=== PATIENT | male | born 1995 | race Two or more races ===

== ENCOUNTER 2020-04-29 05:38 | Inpatient (IN) | payer OTHER ==
--- NOTE | 2020-04-28 11:30 | Pre-op HX & Phy Repo 2 SIG ---
DATE OF ADMISSION: 04/29/2020 SCHEDULED FOR SURGERY: April 29, 2020. HISTORY OF PRESENT ILLNESS: The patient is a 25-year-old patient with gender dysphoria, preoperative sexual reassignment surgery from male to female. PAST MEDICAL HISTORY: MEDICATIONS: Buspirone for anxiety, hormone therapy recently discontinued preoperatively. ALLERGIES: None. OPERATIONS: Breast, nose, cosmetic surgery, and wisdom tooth extraction. REVIEW OF SYSTEMS: She has no genitourinary or gastrointestinal symptoms. PHYSICAL EXAMINATION: GENERAL: The patient is thin. ABDOMEN: Soft. Femoral pulses are 3+. The perianal tissues are normal with no prolapse on straining. IMPRESSION: 1. Gender dysphoria. 2. Preoperative sexual reassignment surgery male to female. DISCUSSION: I have had a full discussion with the patient and her mother regarding the nature of my role in the surgery primarily performed by Dr. Lavelle Vega in that I create space for the vagina between the urinary tract superiorly and the rectum posteriorly. I discussed the use of the rigid sigmoidoscopy during the procedure and I have discussed the risks including bleeding, infection, injury to urinary tract or rectum, which could require additional procedures, delayed rectovaginal fistula that could require additional procedures, etc. All questions have been answered, she understood and agreed to proceed. Sebastian Zuniga M.D. DR: David JOB#: [id number] CC: ROHINI
[2020-04-29] VITALS (14 sets, daily range): BP systolic 112–149; BP diastolic 66–84
[~2020-04-29] VITALS: Ht 175.3 cm; Wt 55.0 kg
[~2020-04-29 05:38] MED LIST: BUSPIRONE HCL7.5 MG ORAL
[2020-04-29] MEDS ORDERED: Midazolam 2mg/2ml Inj ONE (07:05)
[2020-04-29] MEDS ORDERED: fentaNYL 100 mcg/2 mL IV ONE ×2 (07:05→14:17)
[2020-04-29] MEDS ORDERED: Lidocaine 1% MPF 10mg/ml 5ml ONE (07:08)
[2020-04-29] MEDS ORDERED: Bacitracin Oint 15gm Tube TOPIC ONE (07:09)
[2020-04-29] MEDS ORDERED: Bacitracin 50000 Units Vial ONE (07:10)
[2020-04-29] MEDS ORDERED: Lidocaine 1% 10mg/ml/Epi 0.005mg/ml 30ml vial INJ ONE (07:10)
[2020-04-29] MEDS ORDERED: Gelfoam Size TOPIC ONE (07:10)
[2020-04-29] MEDS ORDERED: NeoSporin Gu Irrig 1ml Amp IRRIG ONE (07:10)
[2020-04-29] MEDS ORDERED: TransDerm Scop 1.5mg/72HR Patch TDERMAL ONE ×2 (07:16→09:00)
[2020-04-29] MEDS ORDERED: Succinylcholine 20mg/ml 10ml vial ONE (07:17)
[2020-04-29] MEDS ORDERED: Rocuronium Bromide 50mg/5ml Inj IV ONE ×2 (07:17→12:50)
[2020-04-29] MEDS ORDERED: LR 1000ml ONE (07:30)
[2020-04-29] MEDS ORDERED: Sterile Water Irrig 1000ml IRRIG ONE (07:30)
[2020-04-29] MEDS ORDERED: NS Irrig 1000ml ONE (07:30)
[2020-04-29] MEDS ORDERED: Neostigmine 1mg/ml 10ml Inj ONE (07:30)
--- NOTE | 2020-04-29 07:46 | Pre-Procedure Note/Attestation ---
Pre-Procedure Note/Attestation Complete Prior to Procedure Planned Procedure: not applicable Procedure Narrative: Male to female gender confirmation Indications for Procedure Pre-Operative Diagnosis: gender dysphoria Attestation I attest that I discussed the nature of the procedure; its benefits; risks and complications; and alternatives (and the risks and benefits of such alternatives ), prior to the procedure, with the patient (or the patient's legal treasury representative). I attest that, if there was a reasonable possibility of needing a blood transfusion, the patient (or the patient's legal treasury representative) was given the [facility] standardized written summary, pursuant to the Osiel Datil Blood Safety Act ([place] Health and Safety Code # 1645, as amended). I attest that I re-evaluated the patient just prior to the surgery and that there has been no change in the patient's H&P, except as documented below: Lavelle Vega MD Apr 29, 2020 07:46
[2020-04-29] MEDS ORDERED: NS Irrig 1000ml IRRIG ONE ×2 (07:50→09:00)
[2020-04-29 08:27] LABS: BASOPHILS % (AUTO) 2.6 % (0.0-2.0); EOSINOPHILS % (AUTO) 0.9 % (0.0-3.0); HEMATOCRIT 26.8 % (37.0-47.0); HEMOGLOBIN 8.7 G/DL (12.0-16.0); LYMPHOCYTES % (AUTO) 12.9 % (20.0-45.0); MEAN CORPUSCULAR VOLUME 87 FL (80-99); MONOCYTES % (AUTO) 6.9 % (1.0-10.0); NEUTROPHILS % (AUTO) 76.7 % (45.0-75.0); PLATELET COUNT 369 K/UL (150-450); RED BLOOD COUNT 3.08 M/UL (4.20-5.40); RED CELL DISTRIBUTION WIDTH 12.3 % (11.6-14.8); WHITE BLOOD COUNT 5.1 K/UL (4.8-10.8)
[2020-04-29] MEDS ORDERED: Sodium Chloride 10ml vial INJ ONE (08:31)
[2020-04-29] MEDS ORDERED: ePHEDrine 50mg/ml Inj ONE (08:31)
--- NOTE | 2020-04-29 08:55 | Anethesia Preoperative Eval ---
Anesthesia Pre-op PMH/ROS General Date of Evaluation: Apr 29, 2020 Time of Evaluation: 07:15 Anesthesiologist: Marcos ASA Score: ASA 2 Mallampati Score Class I : Soft palate, uvula, fauces, pillars visible Class II: Soft palate, uvula, fauces visible Class III: Soft palate, base of uvula visible Class IV: Only hard plate visible Mallampati Classification: Class II Surgeon: Silvia Diagnosis: Gener dysphoria Surgical Procedure: Male to female sexual reassingment Anesthesia History: none, PONV - postop. Family History: no anesthesia problems Allergies: Coded Allergies: CHLORHEXIDINE (Verified Allergy, Severe, hives, 04/29/20) Medications: see eMAR Patient NPO?: Yes Past Medical History Cardiovascular: Denies: HTN, CAD, DE, valve dz, arrhythmia, other Pulmonary: Denies: asthma, COPD, SHAWN, other Gastrointestinal/Genitourinary: Denies: GERD, CRI, ESRD, other Neurologic/Psychiatric: Reports: depression/anxiety; Denies: dementia, CVA, TIA, other Endocrine: Denies: DM, hypothyroidism, steroids, other HEENT: Denies: cataract (L), cataract (R), glaucoma, COEUR D'ALENE (L), COEUR D'ALENE (R), other Hematology/Immune: Reports: anemia - starting H&H 8.7/.2, surgeon aware, 2 units of autlogus blod avaliable to transfuse postop; Denies: DVT, bleeding disorder, other Musculoskeletal/Integumentary: Denies: OA, RA, DJD, DDD, edema, other PMH Narrative: as above PSxH Narrative: breasts augmentation, rhinoplasty Anesthesia Pre-op Phys. Exam Physician Exam Last Vital Signs Date Time Temp Pulse Resp B/P (MAP) Pulse Ox O2 Delivery O2 Flow Rate FiO2 04/29/20 06:06 Room Air 04/29/20 06:06 98.3 85 18 133/80 (97) 100 Constitutional: NAD Neurologic: CN 2-12 intact Cardiovascular: RRR, no M/R/G Respiratory: CTA Gastrointestinal: S/NT/ND Airway Exam Mallampati Score: Class II MO: full Neck: fexible ROM: full Teeth: intact Dentures: no upper, no lower Anesthesia Pre-op A/P Labs Hematology Test 04/29/20 08:00 White Blood Count 5.1 K/UL (4.8-10.8) Red Blood Count 3.08 M/UL (4.20-5.40) L Hemoglobin 8.7 G/DL (12.0-16.0) L Hematocrit 26.8 % (37.0-47.0) L Mean Corpuscular Volume 87 FL (80-99) Mean Corpuscular Hemoglobin 28.3 PG (27.0-31.0) Mean Corpuscular Hemoglobin Concent 32.5 G/DL (32.0-36.0) Red Cell Distribution Width 12.3 % (11.6-14.8) Platelet Count 369 K/UL (150-450) Mean Platelet Volume 6.1 FL (6.5-10.1) L Neutrophils (%) (Auto) 76.7 % (45.0-75.0) H Lymphocytes (%) (Auto) 12.9 % (20.0-45.0) L Monocytes (%) (Auto) 6.9 % (1.0-10.0) Eosinophils (%) (Auto) 0.9 % (0.0-3.0) Basophils (%) (Auto) 2.6 % (0.0-2.0) H Risk Assessment & Plan Assessment: ASA 2 Plan: GA with ETT, PONV prevention Status Change Before Surgery: No Pre-Antibiotics Drug: Ancef 1gr Given Within 1 Hr of Incision: Yes Time Given: 08:10 Po Rodríguez MD Apr 29, 2020 08:55
[2020-04-29] MEDS ORDERED: Morphine Sulfate 10mg/ml Inj ONE (08:57)
[2020-04-29] MEDS ORDERED: Acetaminophen (Non formulary) 100 ML IV ONE (09:00)
--- NOTE | 2020-04-29 11:00 | Operative Note - Dictated ---
DATE OF OPERATION: 04/29/2020 SURGEON: Sebastian Zuniga MD ANESTHESIOLOGIST: Po Rodríguez MD. PREOPERATIVE DIAGNOSIS: Gender dysphoria. POSTOPERATIVE DIAGNOSIS: Gender dysphoria. OPERATION PERFORMED: Gender reassignment surgery male to female creation of vaginal canal PROCEDURE IN DETAIL: I entered to the operating room at the appropriate time after initial steps were carried out by the primary surgeon, Dr. Lavelle Vega. I incised the central perineal tendon and dissected a space between the urethra and bladder superiorly and the rectum posteriorly. I used a rigid sigmoidoscope in the rectum to facilitate the dissection. The levators were divided on both sides to allow 2.5 to 3 fingerbreadths in width space. Hemostasis was carefully achieved with cautery. Blunt dissection continued until we reached 11 cm in depth. Then, I placed the patient in Trendelenburg with saline in the field and insufflated the rectum. There was no sign of extravasation and inspecting the rectum with the proctoscope there was no sign of rectal trauma. The rectum was suctioned free of insufflated air and the sigmoidoscope removed. Betadine soaked vaginal pack was placed into the depths of the dissection and the procedure continued by Dr. Vega. Sebastian Zuniga M.D. DR: David JOB#: [id number] CC: ROHINI
[2020-04-29] MEDS ORDERED: LR 1000ml 1,000 ML IVLG SCH (11:12)
[2020-04-29] MEDS ORDERED: Hydromorphone 0.5mg/0.5ml inj IVP PRN (11:15)
[2020-04-29] MEDS ORDERED: Metoclopramide 10mg/2ml Inj IVP PRN (11:15)
[2020-04-29] MEDS ORDERED: Meperidine 25mg/0.5ml Inj (FOR RIGORS ONLY) IV PRN (11:15)
[2020-04-29] MEDS ORDERED: DiphenhydrAMINE 50mg/ml Inj IVP PRN (11:15)
[2020-04-29] MEDS ORDERED: Midazolam 2mg/2ml Inj IVP PRN (11:15)
[2020-04-29] MEDS ORDERED: Ketorolac 30mg Inj IV PRN (11:15)
[2020-04-29] MEDS ORDERED: Glycopyrrolate 0.2mg/ml 1ml Vial ONE (11:28)
[2020-04-29] MEDS ORDERED: DiphenhydrAMINE 50mg/ml Inj IVP SCH (12:15)
[2020-04-29] MEDS ORDERED: D5 1/2NS w/KCl 20mEq 1,000 ML IV SCH (15:05)
--- NOTE | 2020-04-29 15:27 | Immediate Post-Op Evaluation ---
Immediate Post-Op Evalulation Immediate Post-Op Evalulation Procedure: Male to female gender reassingment Date of Evaluation: Apr 29, 2020 Time of Evaluation: 15:25 IV Fluids: 1800 Blood Products: Albumin 250, 1 unit PRBC autologous Estimated Blood Loss: 250 Urinary Output: 300 Blood Pressure Systolic: 126 Blood Pressure Diastolic: 78 Pulse Rate: 92 Respiratory Rate: 22 O2 Sat by Pulse Oximetry: 99 Temperature (Fahrenheit): 97.8 Pain Score (1-10): 1 Nausea: No Vomiting: No Complications none Patient Status: reacts, patent, extubated, none Hydration Status: adequate Po Rodríguez MD Apr 29, 2020 15:27
[2020-04-29] MEDS ORDERED: Rate Change PCA 1 Each MISC PRN (15:30)
[2020-04-29] MEDS ORDERED: PCA Education Pamphlet MISC ONE (15:30)
[2020-04-29] MEDS ORDERED: Naloxone 0.4mg/ml Inj IVP PRN (15:30)
--- NOTE | 2020-04-29 15:32 | NUR ---
CASE MANAGEMENT: INITIAL REVIEW 25YR OLD FEMALE FROM HOME CC: GENDER DYSPHORIA; SEXUAL SURGERY MALE TO FEMALE SI:GENDER REASSIGNMENT MALE TO FEMALE 98.3 85 18 133/80 100% ON RA H/H 8.7/26.8 IS:IN SURGERY NOW \: 3E MED SURG UNIT DCP: HOME WHEN STABLE PLAN: ADMIT TO INPATIENT DVT PROPHYLAXIS IV HYDRATION ENCOURAGE USE OF INCENTIVE SPIROMETER CONTROL PAIN
[2020-04-29 15:42] LABS: HEMATOCRIT 30.6 % (37.0-47.0); HEMOGLOBIN 10.3 G/DL (12.0-16.0); MEAN CORPUSCULAR VOLUME 87 FL (80-99); PLATELET COUNT 438 K/UL (150-450); RED BLOOD COUNT 3.51 M/UL (4.20-5.40); RED CELL DISTRIBUTION WIDTH 13.9 % (11.6-14.8)
[2020-04-29 15:44] LABS: WHITE BLOOD COUNT 24.8 K/UL (4.8-10.8)
[2020-04-29] MEDS ORDERED: ceFAZolin 1gm in D5W 55ml IVP ONE (15:45)
--- NOTE | 2020-04-29 15:46 | NUR ---
*-* INSURANCE *-* UPDATED CLINICALS AND REVIEWS HAVE BEEN FAXED TO: Information obtain in BAR AUTH# [id number] PH: [phone] FX: [phone] REVIEWS/CLINICALS
[2020-04-29] MEDS: PCA HYDROmorphone 1mg/ml 30 ML IV PRN (16:18)
--- NOTE | 2020-04-29 16:40 | NUR ---
NURSE NOTES: PT arrived to the floor via Hospital bed , Received report from Jeannette BAILEY, pt stable A/Ox4, breaths regular unlabored on 3NC, pt denies any pain at this time , pt has 2 ANETA drains on the L and R groin , vaginal dressing clean intact with ice pack, pt has IVF on the R hand and PCD Dilaudid for pain management ,bilateral SCD on . belongings verified and signed for, bed in low locked position, side rails upX2, call light with in reach , will continue to monitor
[2020-04-29] MEDS: PCA shift volume MISC SCH (19:19)
[2020-04-29] MEDS: D5 1/2NS w/KCl 20mEq 1,000 ML IV SCH (19:38)
--- NOTE | 2020-04-29 20:21 | NUR ---
NURSE HAND-OFF: Important Events on Shift: new Patient Status: stable Diet:Clear liquid Pending Orders: Pending Results/Labs: Pending MD notification: Latest Vital Signs: Temperature 97.8 , Pulse 87 , B/P 124 /76 , Respiratory Rate 18 , O2 SAT 100 , Nasal Cannula, O2 Flow Rate 3.0 . Vital Sign Comment: Latest Crowley Fall Score: 35 Fall Risk: Medium Risk Safety Measures: Call light Within Reach, Bed Alarm Zone 2, Side Rails Side Rails x2, Bed position Low and Locked. Fall Precautions: Yellow Socks Report given to Juan M BAILEY
--- NOTE | 2020-04-29 20:25 | NUR ---
NURSE NOTES: Received report from Eunice RN, pt stable A/Ox4, breaths regular unlabored on 3NC, No distress noted. pt reports 4/10 pain , pt has 2 ANETA drains on the L and R groin , vaginal dressing clean intact with ice pack, pt has IVF running and PCD running as ordered, SCDs on, bed in low locked position, side rails upX2, call light with in reach , will continue to monitor
[2020-04-29 20:47] LABS: BASOPHILS % (AUTO) 0.6 % (0.0-2.0); EOSINOPHILS % (AUTO) 0.2 % (0.0-3.0); HEMATOCRIT 27.9 % (37.0-47.0); HEMOGLOBIN 8.7 G/DL (12.0-16.0); LYMPHOCYTES % (AUTO) 10.4 % (20.0-45.0); MEAN CORPUSCULAR VOLUME 91 FL (80-99); MONOCYTES % (AUTO) 9.3 % (1.0-10.0); NEUTROPHILS % (AUTO) 79.6 % (45.0-75.0); PLATELET COUNT 380 K/UL (150-450); RED BLOOD COUNT 3.06 M/UL (4.20-5.40); RED CELL DISTRIBUTION WIDTH 13.4 % (11.6-14.8); WHITE BLOOD COUNT 16.1 K/UL (4.8-10.8)
[2020-04-29] MEDS: ceFAZolin sod 1 GM in D5W 55 ML IVPB SCH (21:30)
[2020-04-30] VITALS (7 sets, daily range): BP systolic 114–137; BP diastolic 70–85
[2020-04-30] MEDS: DiphenhydrAMINE 50mg/ml Inj IVP PRN ×2 (00:56→15:47)
[2020-04-30] MEDS: D5 1/2NS w/KCl 20mEq 1,000 ML IV SCH ×3 (04:00→23:15)
[2020-04-30] MEDS: ceFAZolin sod 1 GM in D5W 55 ML IVPB SCH ×3 (05:24→23:15)
[2020-04-30 06:33] LABS: BASOPHILS % (AUTO) 0.7 % (0.0-2.0); EOSINOPHILS % (AUTO) 1.2 % (0.0-3.0); HEMATOCRIT 26.5 % (37.0-47.0); HEMOGLOBIN 8.6 G/DL (12.0-16.0); LYMPHOCYTES % (AUTO) 12.3 % (20.0-45.0); MEAN CORPUSCULAR VOLUME 88 FL (80-99); MONOCYTES % (AUTO) 8.9 % (1.0-10.0); NEUTROPHILS % (AUTO) 76.9 % (45.0-75.0); PLATELET COUNT 391 K/UL (150-450); RED BLOOD COUNT 3.01 M/UL (4.20-5.40); RED CELL DISTRIBUTION WIDTH 12.6 % (11.6-14.8)
[2020-04-30] MEDS: PCA shift volume MISC SCH ×2 (07:07→19:21)
--- NOTE | 2020-04-30 07:15 | NUR ---
NURSE NOTES: Received patient in bed, patient awake,alert, oriented x4,no sign of distress on RA, on PATIENT CARE SPECIALIST Dilaudid on going encouraged to push button once she is in pain, On going IVF patent and infusing well, vaginal dressing clean dry and intact.with ice bag on, has 2 ANETA drains on the L and R groin , 4 P's in progress SCDs on, bed in low locked position, side rails upX2, call light with in reach , will continue to monitor radha zhang
--- NOTE | 2020-04-30 07:26 | NUR ---
NURSE HAND-OFF: Important Events on Shift: changed dressing x1 Patient Status: Stable Diet: Clear liquid (vegetarian) Pending Orders: Pending Results/Labs: Pending MD notification: Latest Vital Signs: Temperature 98.0 , Pulse 74 , B/P 134 /77 , Respiratory Rate 18 , O2 SAT 97 , Nasal Cannula, O2 Flow Rate 3.0 . Vital Sign Comment: Latest Crowley Fall Score: 35 Fall Risk: Medium Risk Safety Measures: Call light Within Reach, Bed Alarm Zone 2, Side Rails Side Rails x2, Bed position Low and Locked. Fall Precautions: Yellow Socks Report given to LEO Merino.
--- NOTE | 2020-04-30 07:42 | General Progress Note ---
Progress Note Progress Note Afebrile. VSS. Wounds fine. HCt 27 Lavelle Vega MD Apr 30, 2020 07:42
[2020-04-30] MEDS ORDERED: NS IVPB SCH (07:45)
[2020-04-30] MEDS ORDERED: GENTAMICIN IVPB SCH (07:45)
[2020-04-30 08:31] LABS: ANION GAP 6 mmol/L (5-15); BLOOD UREA NITROGEN 7 mg/dL (7-18); CALCIUM 8.2 MG/DL (8.5-10.1); CARBON DIOXIDE 29 MMOL/L (21-32); CHLORIDE 105 MMOL/L (98-107); CREATININE 0.9 MG/DL (0.55-1.30); POTASSIUM 4.3 MMOL/L (3.5-5.1); SODIUM 140 MMOL/L (136-145)
[2020-04-30] MEDS: Enoxaparin 40mg Inj SUBQ SCH (08:44)
[2020-04-30] MEDS: Gentamicin 80mg/100ml Premix IVPB SCH ×2 (11:51→21:45)
--- NOTE | 2020-04-30 14:47 | NUR ---
CASE MANAGEMENT: INITIAL REVIEW CONT ~Labs: 04/29/20 wbc 24.8 H/H 10.3/30.6 CASE MANAGEMENT: REVIEW 04/30/20 SI:GENDER REASSIGNMENT MALE TO FEMALE 98.5 74 18 137/85 97% ON RA WBC 12.0 H/H 8.6/26.5 CA+8.2 BG 112 IS:IV D5@100ML/HR IV GENTAMICIN TID IV CEFAZOLIN TID LOVENOX SQ QD MODERATE NEEDS TEACHER DILAUDID PROTOCOL \: 3E MED SURG UNIT DCP: HOME WHEN STABLE PLAN: MONITOR WBC~TRENDING DOWN DVT PROPHYLAXIS IV HYDRATION ENCOURAGE USE OF INCENTIVE SPIROMETER CONTROL PAIN
--- NOTE | 2020-04-30 15:15 | Operative Note - Dictated ---
DATE OF OPERATION: 04/29/2020 PREOPERATIVE DIAGNOSIS: Male to female gender dysphoria. POSTOPERATIVE DIAGNOSIS: Male to female gender dysphoria. PROCEDURE: Male to female gender confirmation surgery using vaginoplasty with inverted penile skin and full-thickness scrotal skin graft. SURGEON: Lavelle Vega MD. ANESTHESIA: General. INDICATIONS: The patient is a 25-year-old male to female patient, who has been living as a female since 2016. She has been on hormones since 2019. She has fulfilled the requirements for gender reassignment. DESCRIPTION OF OPERATION: The patient was given general anesthesia. She was placed in lithotomy position, prepped and draped in usual manner. An elliptical incision was made from the penoscrotal junction to the perineum, which incorporated most of the scrotum except for some lateral scrotum on each side. The ellipse of skin was then removed. This will be used as a full-thickness skin graft for the vaginoplasty. degloved penis was then inserted into the defect where the scrotal skin graft was removed. Dissection then proceeded to the crura. A #1 Ethibond suture was placed around each boubacar and tied. Dissection then proceeded along the rectus fascia in the lower abdomen to free up the lower abdominal skin. A bolster was then placed pulling the abdominal skin toward the genitalia and was stabilized in place by tying a Prolene suture from the skin to the rectus and out through the skin over a [address] Sebastian Zuniga then proceeded to make the vaginal space and got a depth of approximately 11.5 centimeters. The scrotal skin graft was then defatted. It was then shaped over a vaginal dilator and sutured to itself with 3-0 Vicryl sutures. The inverted penile skin was then sutured to the skin graft over a vaginal dilator and sutured with 3-0 Monocryl sutures. The length of the skin graft with the skin was adequate to reach the bottom of the 12 centimeter vaginal stent. A decision was then made along the underside of each of the crura through the tunica albuginea just lateral to the urethra on each side extending all the way to the distal corporal bodies. Blunt sharp dissection was then done to dissect the spongy tissue off the inside of the tunica albuginea down into the crura. The cavernosal arteries were clamped, cut, and suture ligated with 4-0 PDS sutures. The crura were then closed with an internal pursestring suture on each side with 4-0 Monocryl sutures. Measurement was then made to make a anabelle clitoris on the dorsum of the glans clitoris in a somewhat pentagonal shape. The skin inside of the anabelle-clitoris was then elevated down to the base of what will be the neoclitoris. The neoclitoris was then cut to free it up from the rest of the glans with the base remaining on the tunica. Through the distal corporal bodies, the distal corpora was then cut with the neoclitoris freed up from the rest of the glans clitoris and urethra. There was excellent bleeding from the neoclitoris. The skin on each side was then sutured to the neoclitoris with a running 5-0 Monocryl suture. This was then sutured to itself creating a clitoral ruiz with 5-0 Monocryl suture. The care was taken to make sure that all the spongy tissue was removed. The tunica albuginea was then folded over itself over the pubic symphysis and sutured in place so that the neoclitoris would be in a normal position. The bulbocavernosus muscle was then excised off of the bulb of the urethra. The urethra was then cut at an angle. It is in the mid bulb. Some spongy tissue was excised. The urethral vessels were clamped, cut, and tied. The urethra was spatulated at the 6 o'clock. The urethral mucosa was then sutured to the capsule of the bulb with a running locking 4-0 Monocryl suture. PMT vaginal 12 centimeter stent was then placed inside of the neovagina and was then placed in the vaginal cavity. The posterior introitus was then sutured to the perineum with interrupted 3-0 Monocryl sutures. An inverted U incision was made over the neoclitoris which was delivered through the inverted penile skin and sutured in place with 4-0 Monocryl suture. A vertical incision was made over the neourethra and the skin was sutured to the meatal urethral orifice with a running locking 4-0 Monocryl suture. A 2-0 Monocryl suture was then placed on each side of the clitoris from the penile skin to the endopelvic fashion out through the skin to create a labial sulcus. The anterior portion on each side that will become the labia majora was then shaped and excised. Care was taken to create symmetry. The fatty paraurethral tissue was excised to give normal labia majora appearance. A #10 round Ted-Alex drain was placed through a separate stab incision in the right perineum and brought up along the right side of the wound and into the pubic area. Another #15 round Ted-Alex drain was placed through a stab incision on the left side and brought along the left corporal body. The posterior introitus was closed with interrupted 3-0 and 4-0 Monocryl sutures. The anterior labia majora was closed with some intradermal 4-0 Monocryl followed by subcuticular sutures of 4-0 Monocryl. Bolsters were then placed as red rubber catheters to prevent the expulsion of the vaginal stent. Approximately 80 mL total was placed in the vaginal stent. The patient tolerated the procedure well. She left the operating room in good condition. Lavelle Vega M.D. DR: YAHIR JOB#: [id number] CC:
[2020-04-30 15:38] LABS: BASOPHILS % (AUTO) 0.9 % (0.0-2.0); EOSINOPHILS % (AUTO) 3.9 % (0.0-3.0); HEMATOCRIT 23.9 % (37.0-47.0); LYMPHOCYTES % (AUTO) 15.6 % (20.0-45.0); MEAN CORPUSCULAR VOLUME 87 FL (80-99); MONOCYTES % (AUTO) 12.4 % (1.0-10.0); NEUTROPHILS % (AUTO) 67.2 % (45.0-75.0); PLATELET COUNT 360 K/UL (150-450); RED BLOOD COUNT 2.73 M/UL (4.20-5.40); RED CELL DISTRIBUTION WIDTH 13.1 % (11.6-14.8); WHITE BLOOD COUNT 10.7 K/UL (4.8-10.8)
--- NOTE | 2020-04-30 16:18 | 48 Hour Post Anesthesia Eval ---
Post Anesthesia Evaluation Procedure: Male to female gender reassingment Date of Evaluation: Apr 30, 2020 Time of Evaluation: 16:17 Blood Pressure Systolic: 132 0: 74 Pulse Rate: 68 Respiratory Rate: 20 Temperature (Fahrenheit): 97.6 O2 Sat by Pulse Oximetry: 98 Airway: patent Nausea: No Vomiting: No Pain Intensity: 3 Hydration Status: adequate Cardiopulmonary Status: stable Mental Status/LOC: patient returned to baseline Follow-up Care/Observations: n/a Post-Anesthesia Complications: none Follow-up care needed: N/A Po Rodríguez MD Apr 30, 2020 16:18
[2020-04-30] MEDS: PCA HYDROmorphone 1mg/ml 30 ML IV PRN (16:29)
--- NOTE | 2020-04-30 19:29 | NUR ---
NURSE HAND-OFF: Important Events on Shift:none Patient Status: on going Diet:cleat liguid diet tolerating well denies nausea and vomiting Pending Orders: [n Pending Results/Labs:[n Pending MD notification:[n Latest Vital Signs: Temperature 97.6 , Pulse 68 , B/P 132 /74 , Respiratory Rate 20 , O2 SAT 98 , Room Air, O2 Flow Rate 3.0 . Vital Sign Comment: [n Latest Crowley Fall Score: 35 Fall Risk: Medium Risk Safety Measures: Call light Within Reach, Bed Alarm Zone 2, Side Rails Side Rails x2, Bed position Low and Locked. Fall Precautions: Yellow Socks Report given to Juwan garcia
--- NOTE | 2020-04-30 19:30 | NUR ---
NURSE NOTES: Received report from Angelique RN. Rounding is done. Patient is a/ox4. Denied pain at this time. Provided ice pack. No any distress noted at this time. Breathing is even and unlabored. Iv site is intact and iv fluid is running. Steel cath is in place and draining to gravity. Surgical Dressing on groin is c/d/i. Checked CASH APPLICATION REPRESENTATIVE setting. Bed is on alarm, locked, and lowest position. Call light within reach. Will continue to monitor.
[2020-05-01] VITALS: BP 114/72
[2020-05-01] MEDS: DiphenhydrAMINE 50mg/ml Inj IVP PRN (00:18)
[2020-05-01 04:00] VITALS: BP 116/73
[2020-05-01] MEDS: Gentamicin 80mg/100ml Premix IVPB SCH ×3 (04:59→21:39)
[2020-05-01] MEDS: ceFAZolin sod 1 GM in D5W 55 ML IVPB SCH ×3 (05:50→21:41)
[2020-05-01 06:13] LABS: HEMOGLOBIN 7.6 G/DL (12.0-16.0); MEAN CORPUSCULAR VOLUME 87 FL (80-99); PLATELET COUNT 339 K/UL (150-450); RED BLOOD COUNT 2.75 M/UL (4.20-5.40); RED CELL DISTRIBUTION WIDTH 12.5 % (11.6-14.8); WHITE BLOOD COUNT 8.5 K/UL (4.8-10.8)
--- NOTE | 2020-05-01 06:30 | General Progress Note ---
Progress Note Progress Note Afebrile. Wounds fine. VSS. Hct pending. Lavelle Vega MD May 01, 2020 06:30
[2020-05-01] MEDS: PCA shift volume MISC SCH ×2 (07:00→19:22)
--- NOTE | 2020-05-01 07:19 | NUR ---
NURSE NOTES: Called to Dr. Vega regarding lab results and Dr. Vega aware about it.
--- NOTE | 2020-05-01 07:42 | NUR ---
NURSE HAND-OFF: Important Events on Shift:[PAIN CONTROL] Patient Status: [STABLE] Diet: [CLEAR LIQUID] Pending Orders: [N/A] Pending Results/Labs:[N/A] Pending MD notification:[N/A] Latest Vital Signs: Temperature 98.8 , Pulse 78 , B/P 116 /73 , Respiratory Rate 18 , O2 SAT 99 , Room Air, O2 Flow Rate 3.0 . Vital Sign Comment: [STABLE] Latest Crowley Fall Score: 35 Fall Risk: Medium Risk Safety Measures: Call light Within Reach, Bed Alarm Zone 2, Side Rails Side Rails x2, Bed position Low and Locked. Fall Precautions: Yellow Socks Report given to [Myranda rn].
--- NOTE | 2020-05-01 07:44 | NUR ---
NURSE HAND-OFF: Important Events on Shift:PAIN CONTROL Patient Status: Diet: Pending Orders: Pending Results/Labs: Pending MD notification: Latest Vital Signs: Temperature 98.8 , Pulse 78 , B/P 116 /73 , Respiratory Rate 18 , O2 SAT 99 , Room Air, O2 Flow Rate 3.0 . Vital Sign Comment: Latest Crowley Fall Score: 35 Fall Risk: Medium Risk Safety Measures: Call light Within Reach, Bed Alarm Zone 2, Side Rails Side Rails x2, Bed position Low and Locked. Fall Precautions: Yellow Socks Report given to .
--- NOTE | 2020-05-01 07:50 | NUR ---
NURSE NOTES: Patient is in bed awake and able to verbalize needs. Stable. Denies pain or SOB. CARD HAND running as ordered. All safety measures provided. Patient is in bed in locked and lowest position with call light within reach. All needs met at this time. Will continue to monitor.
[2020-05-01 08:00] VITALS: BP 135/68
[2020-05-01] MEDS: D5 1/2NS w/KCl 20mEq 1,000 ML IV SCH ×2 (09:23→21:51)
[2020-05-01] MEDS: Enoxaparin 40mg Inj SUBQ SCH (09:23)
[2020-05-01] MEDS ORDERED: Chloraseptic Spray 20mL Bottle ORAL PRN (09:45)
--- NOTE | 2020-05-01 11:55 | NUR ---
NURSE NOTES: Blood transfusion started as ordered. Patient is stable. Blood verified by 2 RN. Patient given teaching on s/s to report to RN. No s/s transfusion reaction at this time. VSS, bp 119/72, p71, o2 sat 100%, rr 20, t 98.6. Will continue to monitor.
[2020-05-01 12:00] VITALS: BP 119/72
--- NOTE | 2020-05-01 12:10 | NUR ---
NURSE NOTES: Patient is stable. VSS. bp 121/73, p 75, t 98.5, o2 sat 100%, rr 20. No s/s transfusion reaction at this time. Will continue to monitor.
--- NOTE | 2020-05-01 14:00 | NUR ---
NURSE NOTES: Blood transfusion complete, VSS. No s/s transfusion reaction. Breathing is even and unlabored. No visible signs of distress noted. All needs met at this time. Will continue to monitor.
--- NOTE | 2020-05-01 14:52 | NUR ---
CASE MANAGEMENT: REVIEW 05/01/20 SI:GENDER REASSIGNMENT MALE TO FEMALE 98.3 73 21 119/72 100% ON RA H/H 7.6/24 CA+8.2 BG 112 IS:IV D5@100ML/HR IV GENTAMICIN TID X6 BAG IV CEFAZOLIN TID LOVENOX SQ QD VIBRATOR OPERATOR DILAUDID PROTOCOL BLOOD TX- X1 \: 3E MED SURG UNIT DCP: HOME WHEN STABLE PLAN: TRANSFUSE BLOOD X1 CONT IV ABX
[2020-05-01] MEDS ORDERED: NS 275ml ONE (15:21)
[2020-05-01 15:54] VITALS: BP 119/73
[2020-05-01] MEDS ORDERED: DiphenhydrAMINE 50mg/ml Inj IVP PRN (16:45)
[2020-05-01] MEDS ORDERED: LORazepam 1mg tab ORAL PRN (16:45)
[2020-05-01] MEDS ORDERED: Rate Change PCA 1 Each MISC PRN (16:45)
[2020-05-01] MEDS ORDERED: Naloxone 0.4mg/ml Inj IVP PRN (16:45)
[2020-05-01] MEDS ORDERED: PCA HYDROmorphone 1mg/ml 30 ML IV PRN (16:45)
--- NOTE | 2020-05-01 19:16 | NUR ---
NURSE NOTES: Right ANETA: <2.5mL bloody output. Left ANETA: 2.5mL bloody output.
--- NOTE | 2020-05-01 19:31 | NUR ---
NURSE HAND-OFF: Important Events on Shift:pain management, dressing change Patient Status: stable Diet: clear liquid Pending Orders: n/a Pending Results/Labs:n/a Pending MD notification:n/a Latest Vital Signs: Temperature 98.6 , Pulse 68 , B/P 119 /73 , Respiratory Rate 18 , O2 SAT 100 , Room Air, O2 Flow Rate 3.0 . Vital Sign Comment: n/a Latest Crowley Fall Score: 35 Fall Risk: Medium Risk Safety Measures: Call light Within Reach, Side Rails Side Rails x2, Bed position Low and Locked. Fall Precautions: Yellow Socks Report given to Zaria BAILEY.
--- NOTE | 2020-05-01 19:52 | NUR ---
NURSES NOTE: Pt in bed, A/OX4, denies pain at this time. No outward s/s of distress noted. Breathing pattern is even and unlabored on RA. SECOND BAKER pump in place running Dilaudid. Pt states pain is managed effectively. Dressing changed, perineal area, with outgoing nurse, Myranda. Gonzalez drains in place, engaged. IV R hand, patent, infusing IVF fluids without incident. All due medications will be given. Bed at lowest level, call light within reach. Pt will continue to be monitored.
[2020-05-01 20:00] VITALS: BP 121/75
[2020-05-02] VITALS: BP 110/70
[2020-05-02 04:00] VITALS: BP 124/80
[2020-05-02] MEDS: Gentamicin 80mg/100ml Premix IVPB SCH (04:55)
[2020-05-02] MEDS: ceFAZolin sod 1 GM in D5W 55 ML IVPB SCH ×3 (04:55→23:05)
[2020-05-02] MEDS: D5 1/2NS w/KCl 20mEq 1,000 ML IV SCH ×2 (04:56→16:16)
--- NOTE | 2020-05-02 07:45 | NUR ---
NURSE HAND-OFF: Important Events on Shift:[NONE] Patient Status: [STABLE] Diet: [CLEAR LIQUID] Pending Orders: [NONE] Pending Results/Labs:[NONE; however, hemoglobin/hematocrit low and got packed red blood cell transfusion yesterday but no follow up lab this AM. ] Pending MD notification:[Endorsed to oncoming nurse to enquire about follow up labs.] Latest Vital Signs: Temperature 98.4 , Pulse 70 , B/P 124 /80 , Respiratory Rate 19 , O2 SAT 94 , Room Air, O2 Flow Rate 3.0 . Vital Sign Comment: [WNL] Latest Crowley Fall Score: 35 Fall Risk: Medium Risk Safety Measures: Call light Within Reach, Bed Alarm Zone 2, Side Rails Side Rails x2, Bed position Low and Locked. Fall Precautions: Yellow Socks Report given to [LEO MARTEL].
[2020-05-02 08:00] VITALS: BP 111/69
--- NOTE | 2020-05-02 08:02 | NUR ---
NURSE NOTES:RECEIVED REPORT FR. GRUBER RN.(SHI).PT. ASLEEP ON ROUNDS.NAD.
[2020-05-02] MEDS: PCA shift volume MISC SCH ×2 (09:27→19:16)
[2020-05-02] MEDS: Enoxaparin 40mg Inj SUBQ SCH (09:27)
--- NOTE | 2020-05-02 11:42 | General Progress Note ---
Progress Note Progress Note SHARA Christy. Wounds fine. Lavelle Vega MD May 02, 2020 11:42
--- NOTE | 2020-05-02 11:46 | NUR ---
CASE MANAGEMENT: REVIEW 05/02/20 SI:GENDER REASSIGNMENT MALE TO FEMALE 97.3 62 19 111/69 96% ON RA H/H 10.3/31.5 IS:IV D5@100ML/HR IV GENTAMICIN TID X6 BAG~ COMPLETED IV CEFAZOLIN TID LOVENOX SQ QD BRAZER PRODUCTION LINE DILAUDID PROTOCOL \: 3E MED SURG UNIT DCP: HOME WHEN STABLE PLAN: MONITOR H/H CONT IV ABX OXYGEN THERAPY
[2020-05-02 11:54] LABS: BASOPHILS % (AUTO) 1.1 % (0.0-2.0); EOSINOPHILS % (AUTO) 5.3 % (0.0-3.0); HEMATOCRIT 31.5 % (37.0-47.0); HEMOGLOBIN 10.3 G/DL (12.0-16.0); LYMPHOCYTES % (AUTO) 13.8 % (20.0-45.0); MEAN CORPUSCULAR VOLUME 87 FL (80-99); MONOCYTES % (AUTO) 8.7 % (1.0-10.0); NEUTROPHILS % (AUTO) 71.1 % (45.0-75.0); PLATELET COUNT 408 K/UL (150-450); RED BLOOD COUNT 3.61 M/UL (4.20-5.40); RED CELL DISTRIBUTION WIDTH 12.4 % (11.6-14.8); WHITE BLOOD COUNT 7.5 K/UL (4.8-10.8)
[2020-05-02 12:00] VITALS: BP 123/76
--- NOTE | 2020-05-02 12:02 | NUR ---
*-* INSURANCE *-* UPDATED CLINICALS AND REVIEWS HAVE BEEN FAXED TO: Information obtain in BAR AUTH# [id number] PH: [phone] FX: [phone] REVIEWS/CLINICALS
[2020-05-02] MEDS: TransDerm Scop 1.5mg/72HR Patch TDERMAL SCH (12:45)
[2020-05-02 16:00] VITALS: BP 124/79
--- NOTE | 2020-05-02 18:14 | NUR ---
NURSE NOTES: Right ANETA: 2.5cc bloody output. Left ANETA: 2.5cc bloody output.
--- NOTE | 2020-05-02 19:05 | NUR ---
NURSE NOTES: Received report from LEO Whitmore. AAO x 4, on room air, resting in bed. Pain managed with DOCKETING SPECIALIST. IV site intact and running IVF. Small serosanguineous drainage noted both ANETA. Dressing bilateral surgical site d/c/i. Steel secured to the leg and draining yellow urine. Able to make needs known. No acute distress noted at this time. Bed locked, lowest position, alarm on, side rails up, call light within reach. Will continue to monitor.
--- NOTE | 2020-05-02 19:17 | NUR ---
NURSE HAND-OFF: Important Events on Shift:pain management, hydration, dressing change Patient Status: stable Diet: clear liquid Pending Orders: n/a Pending Results/Labs:n/a Pending MD notification:n/a Latest Vital Signs: Temperature 97.5 , Pulse 55 , B/P 124 /79 , Respiratory Rate 19 , O2 SAT 100 , Room Air, O2 Flow Rate 3.0 . Vital Sign Comment: n/a Latest Crowley Fall Score: 35 Fall Risk: Medium Risk Safety Measures: Call light Within Reach, Bed Alarm Zone 2, Side Rails Side Rails x2, Bed position Low and Locked. Fall Precautions: Yellow Socks Report given to Rosette BAILEY.
[2020-05-02 20:00] VITALS: BP 121/78
[2020-05-03] VITALS: BP 118/74
[2020-05-03] MEDS: D5 1/2NS w/KCl 20mEq 1,000 ML IV SCH ×3 (00:02→21:16)
[2020-05-03 04:00] VITALS: BP 116/66
[2020-05-03] MEDS: ceFAZolin sod 1 GM in D5W 55 ML IVPB SCH ×3 (05:10→21:16)
--- NOTE | 2020-05-03 06:22 | NUR ---
NURSE HAND-OFF: Important Events on Shift:pain management, surgical site dressing, ANETA drain Patient Status: stable Diet: clear liquid Pending Orders: N Pending Results/Labs:N Pending MD notification:N Latest Vital Signs: Temperature 98.5 , Pulse 54 , B/P 116 /66 , Respiratory Rate 16 , O2 SAT 97 , Room Air, O2 Flow Rate 3.0 . Vital Sign Comment: Latest Crowley Fall Score: 35 Fall Risk: Medium Risk Safety Measures: Call light Within Reach, Bed Alarm Zone 2, Side Rails Side Rails x2, Bed position Low and Locked. Fall Precautions: Yellow Socks Addendum: 05/03/20 at 0731 by CHELY GUTIÉRREZ RN RN HAND-OFF: Report given to LEO Gotti.
[2020-05-03] MEDS: PCA shift volume MISC SCH ×2 (07:21→19:11)
--- NOTE | 2020-05-03 07:42 | NUR ---
NURSE NOTES: Received report from Rosette BAILEY. Patient is awake and oriented, in no apparent distress, reporting no pain at this time. Surgical site dressing clean, dry, intact. ANETA's compressed. Steel to gravity drainage. MASTER BARBER settings checked and verified against order, IVF running per order. Patient educated/encouraged to move around in bed and use IS when awake, patient verbalized understanding. Patient updated on plan of care for the day. Side rails upx2, bed low and locked, call light within reach.
--- NOTE | 2020-05-03 07:53 | General Progress Note ---
Progress Note Progress Note BeatrizebriSHARA rivera. Hct 31. Wounds fine. ANETA maría. Lavelle Vega MD May 03, 2020 07:53
--- NOTE | 2020-05-03 07:59 | NUR ---
NURSE NOTES: Received order from Dr. Vega to renew MEDIA RELATIONS DIRECTOR/MEDIA RELATIONS DIRECTOR protocol orders. Order read back and entered.
[2020-05-03 08:00] VITALS: BP 117/71
[2020-05-03] MEDS ORDERED: Rate Change PCA 1 Each MISC PRN (08:15)
[2020-05-03] MEDS ORDERED: Naloxone 0.4mg/ml Inj IVP PRN (08:15)
[2020-05-03] MEDS ORDERED: LORazepam 1mg tab ORAL PRN (08:15)
[2020-05-03] MEDS ORDERED: DiphenhydrAMINE 50mg/ml Inj IVP PRN (08:15)
[2020-05-03] MEDS ORDERED: PCA HYDROmorphone 1mg/ml 30 ML IV PRN (08:15)
[2020-05-03] MEDS: Enoxaparin 40mg Inj SUBQ SCH (09:10)
[2020-05-03 12:00] VITALS: BP 108/60
[2020-05-03 16:00] VITALS: BP 109/60
--- NOTE | 2020-05-03 17:26 | NUR ---
CASE MANAGEMENT: REVIEW 05/03/20 SI:GENDER REASSIGNMENT MALE TO FEMALE 98.5 56 16 109/60 99% ON RA IS:IV D5@100ML/HR IV GENTAMICIN TID X6 BAG~ COMPLETED IV CEFAZOLIN TID LOVENOX SQ QD LAMINATOR PRINTED CIRCUIT BOARDS DILAUDID PROTOCOL \: 3E MED SURG UNIT DCP: HOME WHEN STABLE PLAN: MONITOR H/H CONT IV ABX OXYGEN THERAPY CONT PAIN CONTROL
--- NOTE | 2020-05-03 17:29 | NUR ---
*-* INSURANCE *-* UPDATED CLINICALS AND REVIEWS HAVE BEEN FAXED TO: Information obtain in BAR AUTH# [id number] PH: [phone] FX: [phone] REVIEWS/CLINICALS
--- NOTE | 2020-05-03 19:00 | NUR ---
NURSE NOTES: Received report from LEO Gotti. AAO x 4, on room air, resting in bed. Denied headache and nausea. Pain managed with PRACTICAL NURSING TEACHER. IV site intact and running IVF. Small serosanguineous drainage noted both ANETA. Dressing bilateral surgical site d/c/i. Steel secured to the leg and draining yellow urine. Able to make needs known. No acute distress noted at this time. Bed locked, lowest position, alarm on, side rails up, call light within reach. Will continue to monitor.
--- NOTE | 2020-05-03 19:08 | NUR ---
NURSE HAND-OFF: Important Events on Shift:CRM SYSTEM ADMINISTRATOR renewed, patient's pain managed well. Patient Status: stable Diet: clear liquid Pending Orders: N/A Pending Results/Labs: N/A Pending MD notification: N/A Latest Vital Signs: Temperature 98.5 , Pulse 56 , B/P 109 /60 , Respiratory Rate 16 , O2 SAT 99 , Room Air, O2 Flow Rate 3.0 . Vital Sign Comment: VS stable Latest Crowley Fall Score: 35 Fall Risk: Medium Risk Safety Measures: Call light Within Reach, Bed Alarm Zone 2, Side Rails Side Rails x2, Bed position Low and Locked. Fall Precautions: Yellow Socks Report given to Rosette BAILEY.
[2020-05-03 20:00] VITALS: BP 108/67
[2020-05-04] VITALS: BP 103/59
[2020-05-04 04:00] VITALS: BP 110/67
[2020-05-04] MEDS: ceFAZolin sod 1 GM in D5W 55 ML IVPB SCH ×3 (05:13→21:01)
--- NOTE | 2020-05-04 07:20 | NUR ---
NURSE NOTES: WALKING ROUNDS DONE WITH NIGHT RN. PATIENT AWAKE IN BED HAVING BREAKFAST. QUESTIONS ANSWERED NEEDS MET. SURGICAL SITE ASSESSED. ANETA DRAINS INTACT AND SECURED. MINIMAL SEROSANGUINEOUS DRAINAGE. WADE PATENT AND SECURED.MINIMUM PAIN WITH DILAUDID GENERAL ENGINEER. GENERAL ENGINEER SETTINGS VERIFIED AGAINST MD ORDER.DISCUSSED PLAN OF CARE FOR THE DAY; VERBALIZED UNDERSTANDING. BED IN LWO AND LOCKED POSITION. CALL LIGHT WITHIN REACH.
[2020-05-04] MEDS: PCA shift volume MISC SCH ×2 (07:27→19:12)
--- NOTE | 2020-05-04 07:38 | NUR ---
NURSE HAND-OFF: Important Events on Shift:Nausea, ANETA draining Patient Status: stable Diet: clear liquid Pending Orders: N Pending Results/Labs:N Pending MD notification:N Latest Vital Signs: Temperature 98.1 , Pulse 64 , B/P 110 /67 , Respiratory Rate 16 , O2 SAT 98 , Room Air, O2 Flow Rate 3.0 . Vital Sign Comment: N Latest Crowley Fall Score: 35 Fall Risk: Medium Risk Safety Measures: Call light Within Reach, Bed Alarm Zone 2, Side Rails Side Rails x2, Bed position Low and Locked. Fall Precautions: Yellow Socks Report given to LEO Woods.
[2020-05-04 08:00] VITALS: BP 113/68
[2020-05-04] MEDS: D5 1/2NS w/KCl 20mEq 1,000 ML IV SCH ×2 (08:04→18:19)
[2020-05-04] MEDS: Enoxaparin 40mg Inj SUBQ SCH (09:08)
--- NOTE | 2020-05-04 09:12 | NUR ---
RD ASSESSMENT & RECOMMENDATIONS SEE CARE ACTIVITY FOR COMPLETE ASSESSMENT DAILY ESTIMATED NEEDS: Needs based on Surgery, 56.4kg 30-35 kcals/kg [id number] total kcals 1-2 g protein/kg 56-113 g total protein 25-30 mL/kg 0677-0934 total fluid mLs NUTRITION DIAGNOSIS: Increased kcal and pro needs r/t underweight status as evidenced by pt is 78% ideal body weight, underweight BMI per guidelines. CURRENT DIET: Now Regular ms chopped PO DIET RECOMMENDATIONS: Advance as tolerated to SOFT diet ADDITIONAL RECOMMENDATIONS: 1) Add Ensure Enlive qdaily w/ meals 2) Snacks as tolerated 3) Updated labs as able 4) Monitor for bowel movement
[2020-05-04 12:00] VITALS: BP 111/63
--- NOTE | 2020-05-04 13:46 | NUR ---
NURSE NOTES: PATIENT REMAINS STABLE. PAIN MINIMU2/10 ON PAIN SCALE. WADE CATHETER PATENT; STRAW COLORED URINE NOTED. NO SEDIMENTS PRESENT.REMAINS ON BED REST. BED INN LOW AND LOCKED POSITION. CALL LIGHT WITHIN REACH.
[2020-05-04 16:00] VITALS: BP 127/87
--- NOTE | 2020-05-04 18:05 | NUR ---
CASE MANAGEMENT: REVIEW SI: SEXUAL REASSIGNMENT SURGERY FROM MALE TO FEMALE T 97.7 HR 84 RR 20 BP 111/63 SAT 97% ROOM AIR IS: FEATHER MIXER DILAUDID SCOPOLAMINE PATCH Q72HR ANCEF IV Q8HR D5 1/2 NS w/KCl 20MEQ IVF @ 100ML/HR MED/SURG STATUS DCP: PATIENT IS FROM HOME
--- NOTE | 2020-05-04 18:08 | NUR ---
*-* INSURANCE *-* REVIEWS/CLINICALS FAXED TO [facility] PH: [phone] FX: [phone] [facility]# [id number]
--- NOTE | 2020-05-04 19:06 | NUR ---
NURSE NOTES: UNEVENTFUL DAY. TOLERATED REGULAR DIET. PAIN CONTROLLED. VSS. AFEBRILE. BED IN LOW AND LOCKED POSITION.CALL LIGHT WITHIN REACH.
--- NOTE | 2020-05-04 19:09 | NUR ---
NURSE NOTES: SUPPLIES AT BEDSIDE PER MD REQUEST, SUPPLIES AT BEDSIDE.
--- NOTE | 2020-05-04 19:16 | NUR ---
NURSE HAND-OFF: Important Events on Shift: SUPPLIES PLACED AT BEDSIDE PER MD REQUEST Patient Status: STABLE Diet: REGULAR Pending Orders: N/A Pending Results/Labs:N/A Pending MD notification:N/A Latest Vital Signs: Temperature 97.9 , Pulse 80 , B/P 127 /87 , Respiratory Rate 18 , O2 SAT 98 , Room Air, O2 Flow Rate 3.0 . Vital Sign Comment: N/A Latest Crowley Fall Score: 50 Fall Risk: High Risk Safety Measures: Call light Within Reach, Bed Alarm Zone 2, Side Rails Side Rails x2, Bed position Low and Locked. Fall Precautions: Door Sign Patient Fall Education Report given to ISRAEL RYDER RN.
--- NOTE | 2020-05-04 19:47 | NUR ---
NURSE NOTES: Received report from LEO DIEGO. Patient in stable condition.
[2020-05-04 20:00] VITALS: BP 110/71
[2020-05-05] VITALS: BP 114/75
[2020-05-05 04:00] VITALS: BP_SYST 124; BP_SYST 125; BP_DIAS 78
[2020-05-05] MEDS: D5 1/2NS w/KCl 20mEq 1,000 ML IV SCH ×2 (05:16→14:00)
[2020-05-05] MEDS: ceFAZolin sod 1 GM in D5W 55 ML IVPB SCH ×2 (05:16→13:07)
--- NOTE | 2020-05-05 06:32 | NUR ---
NURSE NOTES: During my shift, patient's pain was well controlled. VSS within normal limits. Urine output normal
--- NOTE | 2020-05-05 06:50 | General Progress Note ---
Progress Note Progress Note Afebrile. Stent, drains out. Wounds fine. Some superficial epidermolysis of distal vagina. Discharge Lavelle Vega MD May 05, 2020 06:50
--- NOTE | 2020-05-05 07:05 | NUR ---
NURSE NOTES: Received report from Jacob RN, rounds made , pt awake a/o4 breaths regular unlabored on RA, denies any pain t this time , pt Steel was just d/c, will monitor for urine output , pt has iv access on the R hand with IVF,intact patent asymptomatic, bed in low locked position,side rails upX2, call light with in reach, pt encouraged to call for help when she is ready to get up, will continue to Monitor
[2020-05-05] MEDS: PCA shift volume MISC SCH (07:14)
--- NOTE | 2020-05-05 07:21 | NUR ---
NURSE HAND-OFF: Important Events on Shift:[jackeline arita dc khoa, removal stitches, pending dc today ] Patient Status: [stable ] Diet: [reg ] Pending Orders: [] Pending Results/Labs:[] Pending MD notification:[] Latest Vital Signs: Temperature 98.2 , Pulse 75 , B/P 125 /78 , Respiratory Rate 20 , O2 SAT 99 , Room Air, O2 Flow Rate 3.0 . Vital Sign Comment: [] Latest Crowley Fall Score: 50 Fall Risk: High Risk Safety Measures: Call light Within Reach, Bed Alarm Zone 2, Side Rails Side Rails x2, Bed position Low and Locked. Fall Precautions: Door Sign Patient Fall Education Report given to [radha palmer ].
[2020-05-05 08:00] VITALS: BP 126/83
[2020-05-05] MEDS: Enoxaparin 40mg Inj SUBQ SCH (09:13)
[2020-05-05 12:00] VITALS: BP 129/79
[2020-05-05] MEDS: TransDerm Scop 1.5mg/72HR Patch TDERMAL SCH (13:08)
--- NOTE | 2020-05-05 14:49 | NUR ---
*-* INSURANCE *-* REVIEWS/CLINICALS FAXED TO [facility] PH: [phone] FX: [phone] AUTH# [id number] RECIEVED FAX REF#[id number] DATE OF ADM: 04/29/20 NEXT REVIEW DATE: 05/04/20 CLINICALS SENT AND DC ORDER FAXED TO INSURANCE
--- NOTE | 2020-05-05 15:29 | NUR ---
NURSE NOTES: pt picked up by both parents , pt discharged in stable condition , escorted in wheel chair
--- NOTE | 2020-05-07 15:22 | Discharge Summary ---
Discharge Summary Hospital Course Date of Admission Apr 29, 2020 at 05:38 Date of Discharge May 05, 2020 at 15:30 Admitting Diagnosis Gender dysphoria Reason for Hospitalization: elective surgery HPI 25-year-old patient with gender dysphoria, preoperative sexual reassignment surgery from male to female, presented for elective surgery. Procedures s/p 04/29/[address] Vega Male to female gender confirmation surgery using vaginoplasty with inverted penile skin and full-thickness scrotal skin graft. s/p 04/29/[address] Zuniga Gender reassignment surgery male to female. Hospital Course patient tolerated surgery well course of recovery uneventful patient remained hemodynamically stable pain management was addressed as needed wound care provided intake and output closely monitored supportive care provided hemoglobin and hematocrit were closely monitored patient received 1 unit of packed red blood cells ; prior to discharge hemoglobin 10.3 , hematocrit 31.5 drains and Steel catheter removed prior to discharge patient voided without difficulties patient clinically stabilized and was ready for discharge FINAL DIAGNOSES Gender dysphoria s/p Male to female gender confirmation surgery using vaginoplasty with inverted penile skin and full-thickness scrotal skin graft. Discharge Condition Upon Discharge: stable Discharge Vital Signs Last Vital Signs Date Time Temp Pulse Resp B/P (MAP) Pulse Ox O2 Delivery O2 Flow Rate FiO2 05/05/20 12:00 98.3 81 16 129/79 (96) 98 05/05/20 09:30 Room Air 21 04/29/20 21:00 3.0 Discharge Disposition Patient was discharged home Discharge Instructions Discharge Instructions Special Instructions I have been assigned to complete a D/C Summary on this account. I was not involved in the patient management Heather Cordova NP May 07, 2020 15:22
== END 2020-05-05 15:30 | disposition home or self-care (01) | DRG 876 ==
LOC: SDSOVERFLO 05:38 → EDSEX 05:38 → 3E 16:35
PROC: 0W4M070 Creation of Vagina in Male Perineum with Autologous Tissue Substitute, Open Approach (ICD-10-PCS; principal; 2020-04-29 07:30)
DX: F64.8 Other gender identity disorders (principal); F41.9 Anxiety disorder, unspecified
CPT/HCPCS: 36415; 80048; 85007; 85025; 86850; 86900; 86901; 86920; 87081; 94003; 94150; J1580; J2250; J2405; J2710; U0002